=== PATIENT | female | born 1990 | race Caucasian/White ===

== ENCOUNTER 2018-03-07 19:33 | Emergency (ER) | payer OTHER | END 2018-03-07 19:55 | disposition home or self-care (01) | LOC: ER 19:33 | DX: L03.317 Cellulitis of buttock (principal) | CPT/HCPCS: 99283 ==

== ENCOUNTER 2018-03-10 05:39 | Emergency (ER) | payer OTHER ==
[2018-03-10] MEDS ORDERED: LIDOCAINE 1% PF 30 ML VIAL. (06:08)
[2018-03-10] MEDS: LIDOCAINE 1% PF 30 ML VIAL. INJ (06:15)
== END 2018-03-10 07:15 | disposition home or self-care (01) ==
LOC: ER 05:39
DX: L05.01 Pilonidal cyst with abscess (principal); Z98.890 Other specified postprocedural states
CPT/HCPCS: 10060; 87071; 87075; 90471; 96372; 99284

== ENCOUNTER 2018-03-12 12:51 | Emergency (ER) | payer OTHER | END 2018-03-12 13:25 | disposition home or self-care (01) | LOC: ER 12:51 | DX: L02.31 Cutaneous abscess of buttock (principal) | CPT/HCPCS: 99282 ==

== ENCOUNTER → 2021-05-19 | Outpatient (CLI) | payer OTHER ==
[2018-03-12 13:00] VITALS: BP 151/72
[~2021-05-19] MED LIST: CEPH500T PO; HYDR-3164 PO; HYDR15SO6 PO; KETO10TA PO; ONDA4TAB10 PO; SULF1TAB24 PO; TRAM50TA PO
--- NOTE | 2021-05-19 10:55 | KCIC ---
EXAM: Chest, 2 views. HISTORY: Cough. Dizziness. Covid 19. COMPARISON: None. FINDINGS: 2 views of the chest are obtained. There is bilateral lower lobe increased interstitial opa city likely due to interstitial infiltrate. There is no consolidation, pleural effusion or pneumothor ax. The heart is normal in size. IMPRESSION: Suspected bilateral lower lobe multifocal interstitial infiltrate. There is no consolidat ed pneumonia. Electronically signed by: Mary Ann Mcgee MD (05/19/2021 10:53 AM) [id number]
== END ==
LOC: KCIC 09:39
PROVIDERS: ATTEND Family Medicine
DX: R05.9 Cough, unspecified (principal)
CPT/HCPCS: 71046